=== PATIENT | male | born 1950 | race Caucasian/White ===

== ENCOUNTER 2020-05-13 14:16 | Emergency (ER) | payer BC, OTHER ==
[2020-05-13 14:25] VITALS: BMI 29.8
--- NOTE | 2020-05-13 14:25 | PDOC ---
Rapid Medical Evaluation Chief Complaint: Injury Time Seen by Provider: 05/13/20 14:22 Medical Evaluation: Allergies Allergy/AdvReac Type Severity Reaction Status Date / Time No Known Allergies Allergy Verified 05/13/20 14:22 05/13/20 14:22 Pt presents to the ER for abdominal pain s/p fall yesterday. He went to an and was diagnosed with two fractured ribs on the L side. They sent him to the ED to r/o splenic lac given LUQ pain on exam Exam: distended abdomen with TTP of the LUQ Orders: labs, IV Pt to proceed to the ER for further evaluation Discharge Disposition - Diagnosis Fall Qualifiers: Encounter type: initial encounter Qualified Code(s): W19.XXXA - Unspecified fall, initial encounter Abdominal pain Qualifiers: Abdominal location: left upper quadrant Qualified Code(s): R10.12 - Left upper quadrant pain - Referrals - Patient Instructions - Post Discharge Activity
--- NOTE | 2020-05-13 14:41 | PDOC ---
History of Present Illness - General Chief Complaint: Injury Stated Complaint: FALL Time Seen by Provider: 05/13/20 14:22 History Source: Patient Exam Limitations: No Limitations - History of Present Illness Travel History: No Initial Comments: 05/13/20 14:35 HISTORY OF PRESENT ILLNESS: 69-year-old male past medical history of hypertension presents emergency department for evaluation of left upper abdominal pain and left rib cage pain status post slip and fall in the shower last night. Denies head truama. Patient was seen and evaluated in urgent care center was found to have multiple rib fractures on the left side. They were concerned about splenic injury and referred to the emergency department for evaluation. Patient denies any nausea, vomiting, rectal bleeding, dysuria, hematuria. Patient is eating and drinking without difficulty this morning for breakfast. No recent travel or sick contacts. PAST MEDICAL HISTORY: See HPI SURGICAL HISTORY: Denies ALLERGIES: No known drug allergies REVIEW OF SYSTEMS General/Constitutional: Denies fever or chills. Denies weakness, weight change. HEENT: Denies change in vision. Denies ear pain or discharge. Denies sore throat. Cardiovascular: Denies chest pain or shortness of breath. Respiratory: Denies cough, wheezing, or hemoptysis. Gastrointestinal: See HPI Genitourinary: Denies dysuria, frequency, or change in urination. Musculoskeletal: Denies joint or muscle swelling or pain. Denies neck or back pain. Skin and breasts: Denies rash or easy bruising. Neurologic: Denies headache, vertigo, loss of consciousness, or loss of sensation. Psychiatric: Denies depression or anxiety. Endocrine: Denies increased thirst. Denies abnormal weight change. Hematologic/Lymphatic: Denies anemia, easy bleeding, or history of blood clots. Allergic/Immunologic: Denies hives or skin allergy. Denies latex allergy. PHYSICAL EXAM General Appearance: Well-appearing, appropriately dressed. No apparent distress, no intoxication. Respiratory/Chest: Lungs CTAB. No shortness of breath, chest tenderness, respiratory distress, accessory muscle use. No crackles, rales, rhonchi, stridor, wheezing, dullness. No flail chest present. Cardiovascular: RRR. S1, S2. No JVD, murmur, bradycardia, tachycardia. Gastrointestinal/Abdominal: Normal bowel sounds. Abdomen soft, non-distended. No organomegaly, pulsatile mass, guarding, hernia, hepatomegaly, splenomegaly. Bruising present over the left upper quadrant. Tenderness elicited upon palpation in the left upper quadrant. Lymphatic: No adenopathy, tenderness. Musculoskeletal/Extremities: Normal inspection. FROM of all extremities, normal capillary refill. Pelvis Stable. No CVA tenderness. No tenderness to extremities, pedal edema, swelling, erythema or deformity. Integumentary: See abdominal exam. Otherwise unremarkable. Neurologic: [place] home demonstr[employer] II-XII intact. Fully oriented, alert. Appropriate mood/affect. Motor strength 5/5. No appreciable EOM palsy, facial droop or sensory deficit. 05/14/20 11:07 Past History - Medical History Allergies/Adverse Reactions: Allergies Allergy/AdvReac Type Severity Reaction Status Date / Time No Known Allergies Allergy Verified 05/13/20 14:22 Home Medications: Ambulatory Orders Zolpidem Tartrate [Ambien] 10 mg PO HS #5 tablet 12/28/14 Metoprolol Succinate [Toprol XL -] 50 mg PO DAILY #30 tab.sr.24h 03/09/15 Anemia: Yes Cardiac Disorders: Yes (pt states hx of irregular heart beat) GI Disorders: Yes HTN: Yes Hypercholesterolemia: Yes - Immunization History Td Vaccination: Yes TDAP Vaccination: No Immunization Up to Date: Yes - Psycho-Social/Smoking History Smoking History: Never smoked Have you smoked in the past 12 months: No - Substance Abuse Hx (Audit-C & DAST Scrn) How often the patient has a drink containing alcohol: Never Score: In Men: 4 or > Positive; In Women: 3 or > Positive: 0 Screen Result (Pos requires Nsg. Audit-10AR): Negative In the last yr the pt used illegal drug/Rx for NonMed reason: No Score: Yes response is considered Positive: 0 Screen Result (Positive result requires Nsg. DAST-10): Negative *Physical Exam - Vital Signs Last Vital Signs Temp Pulse Resp BP Pulse Ox 98.9 F 80 17 163/72 99 05/13/20 14:22 05/13/20 14:22 05/13/20 14:22 05/13/20 14:22 05/13/20 14:22 ED Treatment Course - LABORATORY CBC & Chemistry Diagram: 05/13/20 14:39 05/13/20 14:39 - RADIOLOGY Radiology Studies Ordered: Category Date Time Status ABDOMEN & PELVIS CT WITH CONTR [CT] Stat CT Scan 05/13/20 14:28 Ordered Medical Decision Making - Medical Decision Making 05/13/20 14:37 A/P: 69-year-old male with known left rib fractures and left upper quadrant pain status post slip and fall in bathtub Ecchymosis present over the left upper quadrant of the abdomen Tenderness present in the left upper quadrant Concern for splenic injury given mechanism of injury and physical exam. Labs including coagulation profile and type and screen Urinalysis CT abdomen and pelvis with IV contrast Morphine 4 mg IV push Zofran 4 mg IV push Reassess 05/13/20 16:14 Laboratory Tests 05/13/20 05/13/20 05/13/20 14:39 14:39 14:39 WBC 11.7 H RBC 5.78 H Hgb 17.4 H Hct 52.4 H D MCV 90.6 MCH 30.0 MCHC 33.2 RDW 13.7 Plt Count 215 MPV 9.9 Absolute Neuts (auto) 9.8 H Neutrophils % 83.4 H Lymphocytes % 10.5 D Monocytes % 5.2 Eosinophils % 0.5 Basophils % 0.4 Nucleated RBC % 0 PT with INR 12.00 INR 1.02 Sodium Potassium Chloride Carbon Dioxide Anion Gap BUN Creatinine Est GFR (CKD-EPI)AfAm Est GFR (CKD-EPI)NonAf Random Glucose Calcium Total Bilirubin AST ALT Alkaline Phosphatase Total Protein Albumin Urine Color Yellow Urine Appearance Clear Urine pH 5.0 Ur Specific [place] 1.025 Urine Protein Trace Urine Glucose (UA) 2+ H Urine Ketones Negative Urine Blood Negative Urine Nitrite Negative Urine Bilirubin Negative Urine Urobilinogen 0.2 Ur Leukocyte Esterase Negative 05/13/20 14:39 WBC RBC Hgb Hct MCV MCH MCHC RDW Plt Count MPV Absolute Neuts (auto) Neutrophils % Lymphocytes % Monocytes % Eosinophils % Basophils % Nucleated RBC % PT with INR INR Sodium 139 Potassium 4.6 Chloride 106 Carbon Dioxide 26 Anion Gap 8 BUN 17.8 Creatinine 1.2 Est GFR (CKD-EPI)AfAm 71.58 Est GFR (CKD-EPI)NonAf 61.76 Random Glucose 132 H Calcium 9.2 Total Bilirubin 0.5 AST 20 ALT 34 Alkaline Phosphatase 95 Total Protein 8.4 H Albumin 4.3 Urine Color Urine Appearance Urine pH Ur Specific [place] Urine Protein Urine Glucose (UA) Urine Ketones Urine Blood Urine Nitrite Urine Bilirubin Urine Urobilinogen Ur Leukocyte Esterase CTAP with IV contrast pending 05/13/20 18:59 CT of the chest abdomen pelvis as read by Dr. Driver: Acute left seventh and eighth rib fractures are noted along the posterior axilla midline. A very small left hemothorax is seen. Mild bilateral posterior basilar subpleural atelectasis. No CT evidence of acute pathology within the abdomen/pelvis. Probable subtle 0.6 cm distal splenic artery aneurysm without interval change in comparison to a 2015 CT exam. There is no longer definite visualization of a pedunculated lipoma within the ascending colon Colonic diverticulosis Given CT findings I will contact [facility] for transfer for trauma evaluation 05/13/20 19:35 Patient has been auto accepted to [facility] at 1910. Patient to be transferred to the care of Dr. Piña the on-call trauma attending. Case has been discussed with the on-call trauma attending Dr. Piña who accepts patient as a level 2 transfer. Transfer paperwork has been completed and patient is consented for transfer. Discharge - Discharge Information Problems reviewed: Yes Clinical Impression/Diagnosis: Splenic artery aneurysm, Hemothorax on left Fall Qualifiers: Encounter type: initial encounter Qualified Code(s): W19.XXXA - Unspecified fall, initial encounter Ribs, multiple fractures Qualifiers: Encounter type: initial encounter Fracture type: closed Laterality: left Qualified Code(s): S22.42XA - Multiple fractures of ribs, left side, initial encounter for closed fracture Condition: Guarded Disposition: TRANSFER ACUTE CARE/OTHER HOSP - Follow up/Referral Referrals: ON STAFF,NOT [Primary Care Provider] - - Patient Discharge Instructions - Post Discharge Activity - Transfer to Acute Care Facility Receiving Facility Name: [facility] Accepting Physician:: Wang- trauma surgery may
[2020-05-13] MEDS ORDERED: morphine CARPU-JECT 4 MG/1 ML DISP.SYRIN IVPUSH ONE (14:42)
[2020-05-13] MEDS ORDERED: ONDANSETRON 4 MG/2 ML VIAL IVPUSH ONE (14:42)
[2020-05-13] MEDS ORDERED: morphine SULFATE 4 MG/ML VIAL ONE (14:46)
[2020-05-13 15:36] LABS: BASO % 0.4 % (0-2.0); EOS % 0.5 % (0-4.5); HEMATOCRIT 52.4 % (35.4-49); HEMOGLOBIN 17.4 GM/dL (11.7-16.9); LYMPH % 10.5 % (8-40); MCHC 33.2 g/dl (32.0-35.9); MEAN CELL VOLUME 90.6 fl (80-96); MEAN PLT VOLUME 9.9 fl (7.5-11.1); MONO % 5.2 % (3.8-10.2); NEUT % 83.4 % (42.8-82.8); PLATELET COUNT 215 K/MM3 (134-434); RBC 5.78 M/mm3 (4.00-5.60); RDW 13.7 % (11.9-15.9); WHITE BLOOD COUNT 11.7 K/mm3 (4.0-10.0)
[2020-05-13 15:48] LABS: INR 1.02 (0.83-1.09); URINE APPEARANCE CLEAR; URINE BILIRUBIN NEGATIVE (NEGATIVE); URINE COLOR YELLOW; URINE GLUCOSE (UA) 2+ (NEGATIVE); URINE KETONE NEGATIVE (NEGATIVE); URINE LEUK ESTERASE NEGATIVE (NEGATIVE); URINE NITRITE NEGATIVE (NEGATIVE); URINE PROTEIN TRACE (NEGATIVE); URINE UROBILINOGEN 0.2 mg/dL (0.2-1.0)
[2020-05-13 16:08] LABS: ALBUMIN 4.3 g/dl (3.4-5.0); BILIRUBIN,TOTAL 0.5 mg/dL (0.2-1); BLOOD UREA NITROGEN 17.8 mg/dL (7-18); CALCIUM 9.2 mg/dL (8.5-10.1); CREATININE 1.2 mg/dL (0.55-1.3); POTASSIUM 4.6 mmol/L (3.5-5.1); TOT PROT 8.4 g/dl (6.4-8.2)
[2020-05-13 17:34] VITALS: BP 156/70; PULSE 82
[2020-05-13 20:12] VITALS: TEMP 98.9
== END 2020-05-13 20:48 | disposition short-term general hospital (02) ==
LOC: JER 14:16
PROC: 3E033NZ Introduction of Analgesics, Hypnotics, Sedatives into Peripheral Vein, Percutaneous Approach (ICD-10-PCS; principal; 2020-05-13)
PROC: 3E033GC Introduction of Other Therapeutic Substance into Peripheral Vein, Percutaneous Approach (ICD-10-PCS; 2020-05-13)
DX: S22.42XA Multiple fractures of ribs, left side, initial encounter for closed fracture (principal); I72.8 Aneurysm of other specified arteries; J94.2 Hemothorax; W19.XXXA Unspecified fall, initial encounter
CPT/HCPCS: 36415; 71260-TC; 74177-TC; 80053; 81003; 85025; 85610; 86850; 86900; 86901; 87086; 99285-25; Q9967